=== PATIENT | male | born 1985 | race Caucasian/White ===

== ENCOUNTER 2017-06-20 14:49 | Emergency (ER) | payer OTHER ==
[~2017-06-20] VITALS: Ht 177.8 cm; Wt 90.9 kg
[2017-06-20] MEDS ORDERED: TRAM50TA4 PO (14:59)
[2017-06-20 17:15] VITALS: BP 161/118
== END 2017-06-20 18:07 | disposition home or self-care (01) ==
LOC: EMS 14:51
DX: I10 Essential (primary) hypertension (principal); R42 Dizziness and giddiness; Z79.899 Other long term (current) drug therapy
CPT/HCPCS: 93005; 99283